=== PATIENT | male | born 1940 | race Caucasian/White ===

== ENCOUNTER 2017-12-02 01:06 | Inpatient (IN) | payer MEDICARE, BC ==
[~2017-12-02] VITALS: Ht 172.7 cm; Wt 95.8 kg
[2017-12-02] MEDS ORDERED: levoFLOXACIN-Levaquin 750MG/D5 150 ML IV ONE (01:35)
[2017-12-02] MEDS ORDERED: normal saline 1000ML IV soln IVB ONE ×2 (01:35→03:00)
[2017-12-02 02:19] LABS: BASOPHILS % (AUTO) 0.1 % (0-1); EOSINOPHILS % (AUTO) 0 % (0-6); HEMATOCRIT 38.1 % (42.0-52.0); HEMOGLOBIN 12.8 g/dl (14.0-17.9); LYMPHOCYTES % (AUTO) 6.9 % (21-51); MEAN CORPUSCULAR HEMOGLOBIN 31.4 PG (27.0-31.0); MEAN CORPUSCULAR HGB CONC 33.7 % (33.0-36.5); MEAN CORPUSCULAR VOLUME 93.3 FL (78-98); MEAN PLATELET VOLUME 8.7 FL (7.4-10.4); MONOCYTES # (AUTO) 1.2 X10'3 (0-0.9); PLATELET COUNT 203 X10'3 (140-440); RED BLOOD COUNT 4.08 X10'6 (4.70-6.10); RED CELL DISTRIBUTION WIDTH 13.9 % (11.5-14.5)
[2017-12-02 02:23] LABS: WHITE BLOOD COUNT 29.2 X10'3 (4.5-11.0)
[2017-12-02 02:26] LABS: INR 1.1 INR; PARTIAL THROMBOPLASTIN TIME 29 SECONDS (22-32); PROTHROMBIN TIME 11.3 SECONDS (9.0-12.0)
[2017-12-02 02:28] LABS: CLARITY,URINE CLEAR (Clear); COLOR,URINE YELLOW (Yellow); GLUCOSE, URINE NEGATIVE (Neg); KETONES,URINE NEGATIVE (Neg); LEUKOCYTE ESTERASE ,URINE NEGATIVE (Neg); NITRITES, URINE NEGATIVE (Neg); OCCULT BLOOD,URINE NEGATIVE (Neg); PH,URINE 7.5 (4.8-8.0); PROTEIN,URINE NEGATIVE (Neg)
[2017-12-02 02:30] LABS: UA COLLECTION TYPE STRAIGHT CATH
[2017-12-02 02:37] LABS: ALANINE AMINOTRANSFERASE 177 U/L (12-78); ALBUMIN 3.1 G/DL (3.4-5.0); ALBUMIN/GLOBULIN RATIO 0.9 (1.1-1.5); ALKALINE PHOSPHATASE 215 IU/L (46-116); ANION GAP 4 (8-16); ASPARTATE AMINO TRANSFERASE 100 U/L (10-37); BILIRUBIN,TOTAL 1.2 MG/DL (0.1-1.0); BLOOD UREA NITROGEN 30 MG/DL (7-18); BUN/CREATININE RATIO 33.7 (5.4-32.0); CALCIUM 8.3 MG/DL (8.5-10.1); CHLORIDE 92 MMOL/L (99-107); CREATININE 0.89 MG/DL (0.60-1.10); GLUCOSE 164 MG/DL (70-104); MAGNESIUM 2.1 MG/DL (1.5-2.4); POTASSIUM 5.7 MMOL/L (3.5-5.1); SODIUM 129 MMOL/L (135-145); TOTAL CARBON DIOXIDE 33.2 MMOL/L (24-32); TOTAL PROTEIN 6.7 G/DL (6.4-8.2); eGFR 83 ML/MIN
[2017-12-02 03:15] LABS: ANISOCYTOSIS 1+; PLATELET ESTIMATE NORMAL; STOMATOCYTES 1+; TOTAL CELLS COUNTED 100
[2017-12-02] MEDS ORDERED: magnesium 2GM in 50ml NS 50 ML IV PRN (03:15)
[2017-12-02] MEDS ORDERED: magnesium Cl slow-release 64mg tablet PO PRN (03:15)
[2017-12-02] MEDS ORDERED: albuterol 2.5 MG/3 ML nebule NEB PRN (03:15)
[2017-12-02] MEDS ORDERED: magnesium 4gm in 100ml NS 100 ML IV PRN (03:15)
[2017-12-02] MEDS ORDERED: magnesium hydroxide 30ml (MOM) UD suspension PO PRN (03:15)
[2017-12-02] MEDS ORDERED: mag hydrox/Alum hydrox/simeth 30ml oral suspension PO PRN (03:15)
[2017-12-02] MEDS ORDERED: potassium Cl 40MEQ/NS 500ml 500 ML IV PRN ×2 (03:15)
[2017-12-02] MEDS ORDERED: potassium Cl 20 mEq SR tablet PO PRN ×2 (03:15)
[2017-12-02] MEDS ORDERED: HYDROmorphone inj. 0.5 MG/0.5 ML DISP.SYRIN IV PRN ×2 (03:15)
[2017-12-02] MEDS ORDERED: ondansetron/PF 4mg/2ml inj IV PRN (03:15)
[2017-12-02] MEDS ORDERED: ipratropium/albuterol 3ml nebule NEB PRN (03:15)
[2017-12-02] MEDS ORDERED: acetaminophen 325mg tablet PO PRN (03:15)
[2017-12-02] MEDS ORDERED: GABA-532 GT (03:34)
[2017-12-02] MEDS ORDERED: ACET5SOL2 GT (03:34)
[2017-12-02] MEDS ORDERED: PANT20TA3 GT (03:34)
[2017-12-02] MEDS ORDERED: AMLO2.5T2 GT (03:34)
[2017-12-02] MEDS ORDERED: CLON-528 GT (03:34)
[2017-12-02] MEDS ORDERED: BUSP10TA11 GT (03:34)
[2017-12-02] MEDS ORDERED: CITA20TA11 GT (03:34)
[2017-12-02] MEDS: CefTRIAXone 2gm/NS 100ml IVPB 100 ML IV SCH (04:05)
[2017-12-02] MEDS: normal saline 1000ml 1,000 ML IV SCH ×3 (04:05→23:14)
[2017-12-02] MEDS: azithromycin/NS 500mg/250ml 250 ML IV SCH (05:34)
[2017-12-02] MEDS: K and/or MAG REPLACEMENT MC SCH (07:59)
[2017-12-02] MEDS: heparin, porcine 5000 units/ml vial SQ SCH ×2 (08:05→21:25)
[2017-12-02] MEDS ORDERED: MELO7.5T12 PO (11:37)
[2017-12-02] MEDS ORDERED: MELO15TA13 GT (11:37)
[2017-12-02] MEDS ORDERED: METO-395 GT (11:41)
[2017-12-02] MEDS ORDERED: LORA10TA7 GT (12:18)
[2017-12-02] MEDS ORDERED: VIT500LI GT (12:18)
[2017-12-02] MEDS ORDERED: MONT10TA21 GT (12:18)
[2017-12-02] MEDS ORDERED: CLON0.252 PO (12:18)
[2017-12-02] MEDS ORDERED: [UNRECOGNIZED DRUG - CODE] GT (12:18)
[2017-12-02] MEDS ORDERED: FAMO-129 GT (12:18)
[2017-12-02] MEDS ORDERED: IPRA3AMP IH (12:18)
[2017-12-02] MEDS ORDERED: MUPI22OI30 TOP (12:18)
[2017-12-02] MEDS ORDERED: MAGN400O6 GT (12:18)
[2017-12-02] MEDS ORDERED: FURO-150 GT (12:18)
[2017-12-02] MEDS ORDERED: METO5SOL GT (12:18)
[2017-12-02] MEDS ORDERED: SENN8.8S9 GT (12:18)
[2017-12-02] MEDS ORDERED: TRAZ-143 PO (12:18)
[2017-12-02] MEDS ORDERED: FLUT16SP2 BOTHNARES (12:44)
[2017-12-02] MEDS ORDERED: MELO7.5T12 GT (12:44)
[2017-12-02] MEDS ORDERED: DOCU50LI24 GT (12:44)
[2017-12-02] MEDS ORDERED: [UNRECOGNIZED DRUG - CODE] TOP (12:55)
[2017-12-02 15:38] LABS: ALBUMIN 2.4 G/DL (3.4-5.0); ANION GAP 2 (8-16); BLOOD UREA NITROGEN 24 MG/DL (7-18); BUN/CREATININE RATIO 28.6 (5.4-32.0); CALCIUM 7.6 MG/DL (8.5-10.1); CHLORIDE 99 MMOL/L (99-107); CREATININE 0.84 MG/DL (0.60-1.10); GLUCOSE 124 MG/DL (70-104); POTASSIUM 4.4 MMOL/L (3.5-5.1); SODIUM 133 MMOL/L (135-145); TOTAL CARBON DIOXIDE 31.7 MMOL/L (24-32); eGFR 89 ML/MIN
[2017-12-02] MEDS: lactobacillus rhamnosus 10,000 MMU CELLS/CAPSULE PO SCH (21:25)
[2017-12-03] MEDS: CefTRIAXone 2gm/NS 100ml IVPB 100 ML IV SCH (04:01)
[2017-12-03] MEDS ORDERED: ACETAMINOPHEN GT PRN (04:05)
[2017-12-03] MEDS ORDERED: SENNOSIDES GT PRN (04:05)
[2017-12-03] MEDS ORDERED: CODEINE GT PRN (04:05)
[2017-12-03] MEDS ORDERED: furosemide 20MG tablet PO PRN (04:05)
[2017-12-03] MEDS: azithromycin/NS 500mg/250ml 250 ML IV SCH (05:27)
[2017-12-03 06:29] LABS: BASOPHILS # (AUTO) 0.1 X10'3 (0-0.2); BASOPHILS % (AUTO) 0.6 % (0-1); EOSINOPHILS # (AUTO) 0.1 X10'3 (0-0.9); EOSINOPHILS % (AUTO) 0.4 % (0-6); LYMPHOCYTES # (AUTO) 4.2 X10'3 (1.1-4.8); LYMPHOCYTES % (AUTO) 31.4 % (21-51); MEAN CORPUSCULAR HEMOGLOBIN 31.4 PG (27.0-31.0); MEAN CORPUSCULAR HGB CONC 33.4 % (33.0-36.5); MEAN CORPUSCULAR VOLUME 93.9 FL (78-98); MEAN PLATELET VOLUME 8.8 FL (7.4-10.4); MONOCYTES # (AUTO) 0.9 X10'3 (0-0.9); NEUTROPHILS # (AUTO) 8.1 X10'3 (1.8-7.7); NEUTROPHILS % (AUTO) 60.6 % (42-75); PLATELET COUNT 159 X10'3 (140-440); RED BLOOD COUNT 3.51 X10'6 (4.70-6.10); RED CELL DISTRIBUTION WIDTH 13.7 % (11.5-14.5); WHITE BLOOD COUNT 13.3 X10'3 (4.5-11.0)
[2017-12-03 06:47] LABS: ALANINE AMINOTRANSFERASE 98 U/L (12-78); ALBUMIN 2.4 G/DL (3.4-5.0); ALBUMIN/GLOBULIN RATIO 0.7 (1.1-1.5); ALKALINE PHOSPHATASE 151 IU/L (46-116); ANION GAP 4 (8-16); ASPARTATE AMINO TRANSFERASE 40 U/L (10-37); BILIRUBIN,TOTAL 0.6 MG/DL (0.1-1.0); BLOOD UREA NITROGEN 20 MG/DL (7-18); BUN/CREATININE RATIO 30.8 (5.4-32.0); CALCIUM 8.1 MG/DL (8.5-10.1); CHLORIDE 99 MMOL/L (99-107); CHOL/HDL RATIO 2.8 (0.00-4.99); CHOLESTEROL 107 MG/DL (0-200); CREATININE 0.65 MG/DL (0.60-1.10); GLUCOSE 93 MG/DL (70-104); HDL CHOLESTEROL 38 MG/DL (35-60); LDL CHOLESTEROL 58 MG/DL (50-100); MAGNESIUM 1.8 MG/DL (1.5-2.4); POTASSIUM 4.6 MMOL/L (3.5-5.1); SODIUM 133 MMOL/L (135-145); TOTAL CARBON DIOXIDE 30.3 MMOL/L (24-32); TOTAL PROTEIN 5.7 G/DL (6.4-8.2); TRIGLYCERIDES 46 MG/DL (20-135); eGFR > 90 ML/MIN
[2017-12-03] MEDS ORDERED: acetaminophen/codeine 120mg/12mg per 5ml cup PO PRN (07:20)
[2017-12-03 07:45] VITALS: BP 131/89
[2017-12-03] MEDS: K and/or MAG REPLACEMENT MC SCH (08:00)
[2017-12-03] MEDS ORDERED: BUSPIRONE HCL GT SCH (08:00)
[2017-12-03] MEDS ORDERED: non-formulary drug (Pantoprazole Sodium (Protonix) 2 TAB) GT SCH (08:00)
[2017-12-03] MEDS: fluticasone nasal spray 16GM bottle NS SCH (08:00)
[2017-12-03] MEDS ORDERED: METOCLOPRAMIDE HCL 5 MG GT SCH (08:00)
[2017-12-03] MEDS ORDERED: MELOXICAM GT SCH (08:00)
[2017-12-03] MEDS: lactobacillus rhamnosus 10,000 MMU CELLS/CAPSULE PO SCH ×2 (08:00→20:52)
[2017-12-03] MEDS: ipratropium/albuterol 3ml nebule IH SCH ×3 (09:00→20:44)
[2017-12-03] MEDS: normal saline 1000ml 1,000 ML IV SCH ×3 (09:14→23:15)
[2017-12-03] MEDS: citalopram 20mg tablet GT SCH (10:03)
[2017-12-03] MEDS: metoprolol succinate 25mg (24-HOUR) SR. Tablet PO SCH ×2 (10:03→20:53)
[2017-12-03] MEDS: amLODIPine 2.5mg tablet GT SCH (10:04)
[2017-12-03] MEDS: gabapentin 300mg capsule GT SCH ×2 (10:05→16:52)
[2017-12-03] MEDS: loratadine 10mg tablet PEG SCH (10:06)
[2017-12-03] MEDS: docusate sodium 100mg/10ml UD cup GT SCH ×2 (10:07→20:52)
[2017-12-03] MEDS: clonazePAM 0.5mg tablet PEG PRN (10:16)
[2017-12-03] MEDS: heparin, porcine 5000 units/ml vial SQ SCH ×2 (10:19→20:53)
[2017-12-03 11:40] VITALS: BP 153/74
[2017-12-03] MEDS: metoclopramide 10mg/10 ml UD oral solution PEG SCH ×2 (13:45→20:52)
[2017-12-03 17:41] LABS: PREALBUMIN 15.5 MG/DL (19-36)
[2017-12-03 19:40] VITALS: BP 128/57
[2017-12-03] MEDS: naproxen 375mg tablet PO SCH (20:52)
[2017-12-03] MEDS: traZODone 50mg tablet PO SCH (20:53)
[2017-12-03] MEDS: sennosides 8.6mg tablet PO SCH (20:53)
[2017-12-03] MEDS: montelukast 10mg tablet PEG SCH (20:53)
[2017-12-03 23:45] VITALS: BP 120/62
[2017-12-04] MEDS: gabapentin 300mg capsule GT SCH ×3 (00:14→17:54)
[2017-12-04] MEDS: ipratropium/albuterol 3ml nebule IH SCH ×3 (03:47→21:37)
[2017-12-04] MEDS: CefTRIAXone 2gm/NS 100ml IVPB 100 ML IV SCH (03:48)
[2017-12-04] MEDS: azithromycin/NS 500mg/250ml 250 ML IV SCH (04:41)
[2017-12-04 05:06] LABS: BASOPHILS % (AUTO) 0 % (0-1); EOSINOPHILS # (AUTO) 0.1 X10'3 (0-0.9); EOSINOPHILS % (AUTO) 0.8 % (0-6); HEMATOCRIT 31.8 % (42.0-52.0); HEMOGLOBIN 10.9 g/dl (14.0-17.9); LYMPHOCYTES % (AUTO) 49.6 % (21-51); MEAN CORPUSCULAR HEMOGLOBIN 31.5 PG (27.0-31.0); MEAN CORPUSCULAR HGB CONC 34.2 % (33.0-36.5); MEAN CORPUSCULAR VOLUME 92.1 FL (78-98); MEAN PLATELET VOLUME 8.4 FL (7.4-10.4); MONOCYTES # (AUTO) 0.8 X10'3 (0-0.9); MONOCYTES % (AUTO) 7.9 % (2-12); NEUTROPHILS # (AUTO) 4.2 X10'3 (1.8-7.7); NEUTROPHILS % (AUTO) 41.7 % (42-75); PLATELET COUNT 174 X10'3 (140-440); RED BLOOD COUNT 3.46 X10'6 (4.70-6.10); WHITE BLOOD COUNT 10.1 X10'3 (4.5-11.0)
[2017-12-04 05:22] LABS: ALANINE AMINOTRANSFERASE 77 U/L (12-78); ALBUMIN 2.4 G/DL (3.4-5.0); ALBUMIN/GLOBULIN RATIO 0.7 (1.1-1.5); ALKALINE PHOSPHATASE 132 IU/L (46-116); ANION GAP 4 (8-16); ASPARTATE AMINO TRANSFERASE 31 U/L (10-37); BILIRUBIN,TOTAL 0.7 MG/DL (0.1-1.0); BLOOD UREA NITROGEN 14 MG/DL (7-18); BUN/CREATININE RATIO 22.2 (5.4-32.0); CALCIUM 8.5 MG/DL (8.5-10.1); CHLORIDE 100 MMOL/L (99-107); CREATININE 0.63 MG/DL (0.60-1.10); GLUCOSE 85 MG/DL (70-104); MAGNESIUM 1.8 MG/DL (1.5-2.4); POTASSIUM 4.5 MMOL/L (3.5-5.1); PREALBUMIN 14.4 MG/DL (19-36); SODIUM 136 MMOL/L (135-145); TOTAL CARBON DIOXIDE 31.6 MMOL/L (24-32); TOTAL PROTEIN 5.7 G/DL (6.4-8.2); eGFR > 90 ML/MIN
[2017-12-04 08:00] VITALS: BP 120/63
[2017-12-04] MEDS: K and/or MAG REPLACEMENT MC SCH (08:00)
[2017-12-04] MEDS: docusate sodium 100mg/10ml UD cup GT SCH ×2 (08:49→22:21)
[2017-12-04] MEDS: amLODIPine 2.5mg tablet GT SCH (08:49)
[2017-12-04] MEDS: busPIRone 5mg tablet GT SCH (08:50)
[2017-12-04] MEDS: citalopram 20mg tablet GT SCH (08:50)
[2017-12-04] MEDS: heparin, porcine 5000 units/ml vial SQ SCH ×2 (08:51→22:23)
[2017-12-04] MEDS: pantoprazole 40mg Tablet.DR PO SCH (08:55)
[2017-12-04] MEDS: loratadine 10mg tablet PEG SCH (08:56)
[2017-12-04] MEDS: naproxen 375mg tablet PO SCH ×2 (08:56→22:22)
[2017-12-04] MEDS: metoclopramide 10mg/10 ml UD oral solution PEG SCH ×3 (08:56→22:22)
[2017-12-04] MEDS: metoprolol succinate 25mg (24-HOUR) SR. Tablet PO SCH ×2 (08:56→22:22)
[2017-12-04] MEDS: lactobacillus rhamnosus 10,000 MMU CELLS/CAPSULE PO SCH ×2 (08:56→22:22)
[2017-12-04] MEDS: normal saline 1000ml 1,000 ML IV SCH ×2 (09:38→19:24)
[2017-12-04 11:00] VITALS: BP 134/71
[2017-12-04] MEDS: fluticasone nasal spray 16GM bottle NS SCH (12:15)
[2017-12-04 19:45] VITALS: BP 135/74
[2017-12-04] MEDS: montelukast 10mg tablet PEG SCH (22:22)
[2017-12-04] MEDS: sennosides 8.6mg tablet PO SCH (22:22)
[2017-12-04] MEDS: traZODone 50mg tablet PO SCH (22:22)
[2017-12-04 23:40] VITALS: BP 117/54
[2017-12-05] MEDS: gabapentin 300mg capsule GT SCH ×2 (00:10→08:32)
[2017-12-05] MEDS: ipratropium/albuterol 3ml nebule IH SCH ×3 (03:09→15:25)
[2017-12-05] MEDS: normal saline 1000ml 1,000 ML IV SCH (04:32)
[2017-12-05] MEDS: CefTRIAXone 2gm/NS 100ml IVPB 100 ML IV SCH (04:32)
[2017-12-05] MEDS: azithromycin/NS 500mg/250ml 250 ML IV SCH (05:18)
[2017-12-05 05:35] LABS: BASOPHILS % (AUTO) 0.3 % (0-1); EOSINOPHILS # (AUTO) 0.1 X10'3 (0-0.9); EOSINOPHILS % (AUTO) 1.2 % (0-6); HEMATOCRIT 33.2 % (42.0-52.0); HEMOGLOBIN 11.3 g/dl (14.0-17.9); LYMPHOCYTES # (AUTO) 4.2 X10'3 (1.1-4.8); LYMPHOCYTES % (AUTO) 44.8 % (21-51); MEAN CORPUSCULAR HEMOGLOBIN 31.4 PG (27.0-31.0); MEAN CORPUSCULAR VOLUME 92.2 FL (78-98); MEAN PLATELET VOLUME 8.7 FL (7.4-10.4); MONOCYTES # (AUTO) 0.8 X10'3 (0-0.9); MONOCYTES % (AUTO) 8.7 % (2-12); NEUTROPHILS # (AUTO) 4.2 X10'3 (1.8-7.7); PLATELET COUNT 177 X10'3 (140-440); RED CELL DISTRIBUTION WIDTH 13.9 % (11.5-14.5); WHITE BLOOD COUNT 9.4 X10'3 (4.5-11.0)
[2017-12-05 06:06] LABS: ALANINE AMINOTRANSFERASE 69 U/L (12-78); ALBUMIN 2.4 G/DL (3.4-5.0); ALBUMIN/GLOBULIN RATIO 0.7 (1.1-1.5); ALKALINE PHOSPHATASE 137 IU/L (46-116); ANION GAP 3 (8-16); ASPARTATE AMINO TRANSFERASE 27 U/L (10-37); BILIRUBIN,TOTAL 0.6 MG/DL (0.1-1.0); BLOOD UREA NITROGEN 15 MG/DL (7-18); BUN/CREATININE RATIO 25.9 (5.4-32.0); CALCIUM 8.6 MG/DL (8.5-10.1); CHLORIDE 99 MMOL/L (99-107); CREATININE 0.58 MG/DL (0.60-1.10); GLUCOSE 107 MG/DL (70-104); MAGNESIUM 1.6 MG/DL (1.5-2.4); POTASSIUM 4.1 MMOL/L (3.5-5.1); SODIUM 134 MMOL/L (135-145); TOTAL CARBON DIOXIDE 31.6 MMOL/L (24-32); TOTAL PROTEIN 5.7 G/DL (6.4-8.2); eGFR > 90 ML/MIN
[2017-12-05 08:00] VITALS: BP 158/90
[2017-12-05] MEDS: fluticasone nasal spray 16GM bottle NS SCH (08:00)
[2017-12-05] MEDS: loratadine 10mg tablet PEG SCH (08:00)
[2017-12-05] MEDS: K and/or MAG REPLACEMENT MC SCH (08:00)
[2017-12-05] MEDS: busPIRone 5mg tablet GT SCH (08:31)
[2017-12-05] MEDS: docusate sodium 100mg/10ml UD cup GT SCH (08:32)
[2017-12-05] MEDS: citalopram 20mg tablet GT SCH (08:32)
[2017-12-05] MEDS: amLODIPine 2.5mg tablet GT SCH (08:33)
[2017-12-05] MEDS: metoclopramide 10mg/10 ml UD oral solution PEG SCH ×2 (08:34→14:39)
[2017-12-05] MEDS: lactobacillus rhamnosus 10,000 MMU CELLS/CAPSULE PO SCH (08:34)
[2017-12-05] MEDS: pantoprazole 40mg Tablet.DR PO SCH (08:35)
[2017-12-05] MEDS: naproxen 375mg tablet PO SCH (08:35)
[2017-12-05] MEDS: metoprolol succinate 25mg (24-HOUR) SR. Tablet PO SCH (08:36)
[2017-12-05] MEDS: heparin, porcine 5000 units/ml vial SQ SCH (08:37)
[2017-12-05] MEDS ORDERED: AZI25OT PO (09:25)
[2017-12-05] MEDS ORDERED: LEVO250T2 PO (09:33)
[2017-12-05 11:41] VITALS: BP 135/67
[2017-12-05] MEDS: clonazePAM 0.5mg tablet PEG PRN (14:56)
[2017-12-06] MEDS ORDERED: azithromycin 250mg tablet PO SCH (08:00)
== END 2017-12-05 16:30 | disposition home health service (06) | DRG 871 ==
LOC: ER 01:06 → ED HOLD 03:14 → SUR 3N 12-03 07:18
PROVIDERS: ADMIT Internal Medicine; ATTEND Internal Medicine
PROC: 5A09457 Assistance with Respiratory Ventilation, 24-96 Consecutive Hours, Continuous Positive Airway Pressure (ICD-10-PCS; principal; 2017-12-03)
DX: A41.9 Sepsis, unspecified organism (principal); J18.1 Lobar pneumonia, unspecified organism; E87.5 Hyperkalemia; R06.03 Acute respiratory distress; E87.1 Hypo-osmolality and hyponatremia; R13.10 Dysphagia, unspecified; G62.9 Polyneuropathy, unspecified; J47.0 Bronchiectasis with acute lower respiratory infection; J47.1 Bronchiectasis with (acute) exacerbation; D64.9 Anemia, unspecified; F32.9 Major depressive disorder, single episode, unspecified; R73.9 Hyperglycemia, unspecified; F41.9 Anxiety disorder, unspecified; I10 Essential (primary) hypertension; K21.9 Gastro-esophageal reflux disease without esophagitis; Z51.5 Encounter for palliative care; Z66 Do not resuscitate; Z93.1 Gastrostomy status; Z91.018 Allergy to other foods; Z79.899 Other long term (current) drug therapy; Z86.73 Personal history of transient ischemic attack (TIA), and cerebral infarction without residual deficits; Z87.891 Personal history of nicotine dependence
CPT/HCPCS: 36415; 71045; 80048; 80053; 80061; 81003; 82948; 83605; 83735; 84134; 84145; 85025; 85610; 85730; 87040; 87070; 87502; 87503; 93005; 94640; 94760; 96365; 99291; A4353; A6212; J0456; J0696; J1644; J1956; J7030; J8597